=== PATIENT | female | born 1965 | race Caucasian/White ===

== ENCOUNTER 2017-04-14 10:12 | Emergency (ER) | payer SELFPAY ==
[2017-04-14] MEDS ORDERED: NORMAL SALINE 1000 ML 1,000 ML IV ONE ×2 (10:41→13:10)
--- NOTE | 2017-04-14 10:42 | ER Document Report ---
ED Blood Sugar Problem - General Chief Complaint: High Blood Sugar Stated Complaint: SUGAR CONCERN Time Seen by Provider: 04/14/17 10:40 Mode of Arrival: Ambulatory Information source: Patient Notes: Patient states that she had an elevated blood sugar at her primary doctor's office and was told that her A1c was 8.5. They noticed ketones in elevated glucose on her urinalysis and advised her to come here for evaluation for possible DKA. Patient reports generalized fatigue, polyuria and polydipsia. Patient denies any pain, fever, nausea or vomiting. Patient states that she did buy a glucometer online and has been checking her blood sugar over the past few days. Patient has no previous history of diabetes. TRAVEL OUTSIDE OF THE [place] IN LAST 30 DAYS: No - HPI Onset: This afternoon Onset/Duration: Gradual Quality of pain: No pain Pain Level: Denies Associated symptoms: Increased thirst, Frequent urination, Weakness. denies: Confusion, Vomiting Similar symptoms previously: No Recently seen / treated by doctor: Yes - Related Data Allergies/Adverse Reactions: Penicillins Allergy (Verified 04/14/17 10:23) Past Medical History - General Information source: Patient - Social History Smoking Status: Never Smoker Frequency of alcohol use: Occasional Drug Abuse: None Family History: Reviewed & Not Pertinent Patient has suicidal ideation: No Patient has homicidal ideation: No - Medical History Medical History: Other - Tremor Renal/ Medical History: Denies: Hx Peritoneal Dialysis Past Surgical History: Reports: Hx Section Review of Systems - Review of Systems Constitutional: Malaise. denies: Fever, Recent illness EENT: No symptoms reported Cardiovascular: No symptoms reported. denies: Chest pain, Dizziness Respiratory: No symptoms reported. denies: Cough, Short of breath Gastrointestinal: Other - Increased thirst. denies: Abdominal pain, Nausea, Vomiting Genitourinary: Frequency Female Genitourinary: No symptoms reported Musculoskeletal: No symptoms reported. denies: Back pain, Neck pain Skin: No symptoms reported Hematologic/Lymphatic: No symptoms reported Neurological/Psychological: No symptoms reported Physical Exam - Vital signs Vitals: Temp Pulse Resp BP Pulse Ox 98.4 F 80 15 127/77 H 98 04/14/17 10:29 04/14/17 10:29 04/14/17 10:29 04/14/17 10:29 04/14/17 10:29 - General General appearance: Appears well, Alert In distress: None - HEENT Head: Normocephalic Eyes: Normal Conjunctiva: Normal - Respiratory Respiratory status: No respiratory distress Chest status: Nontender Breath sounds: Normal. No: Rales, Rhonchi, Stridor, Wheezing Chest palpation: Normal - Cardiovascular Rhythm: Regular Heart sounds: S1 appreciated, S2 appreciated Murmur: No - Abdominal Inspection: Obese Bowel sounds: Normal Tenderness: Nontender - Back Back: Normal, Nontender - Extremities General upper extremity: Normal inspection, Normal strength General lower extremity: Normal inspection, Normal strength - Neurological Neuro grossly intact: Yes Cognition: Normal Ahmet Coma Scale Eye Opening: Spontaneous Ahmet Coma Scale Verbal: Oriented [place] Coma Scale Motor: Obeys Commands Ahmet Coma Scale Total: 15 - Psychological Associated symptoms: Normal affect, Normal mood - Skin Skin Temperature: Warm Skin Moisture: Dry Skin Color: Flushed Course - Re-evaluation Re-evalutation: 04/14/17 13:36 Patient updated regarding results of diagnostic test results. Discussed plan of care with patient. We will give her additional liter of IV fluid as well as some insulin to help with her elevated blood sugar this time. Consulted with Dr. Bryant regarding patient presentation, reviewed patient's EKG. Recommends outpatient follow-up with a primary doctor for further management of her diabetes. 04/14/17 13:45 land planner consulted with patient and discussed outpatient needs. - Vital Signs Vital signs: Temp Pulse Resp BP Pulse Ox 98.4 F 76 15 143/81 H 99 04/14/17 10:29 04/14/17 14:46 04/14/17 10:29 04/14/17 14:46 04/14/17 14:46 - Laboratory Result Diagrams: 04/14/17 11:50 04/14/17 11:50 Laboratory results interpreted by me: 04/14/17 04/14/17 04/14/17 10:36 10:53 11:50 WBC 13.1 H Hgb 17.1 H Hct 48.6 H Absolute Neutrophils 10.2 H Sodium Chloride Glucose POC Glucose 335 H AST ALT Urine Glucose (UA) >=500 H Urine Ketones 80 H Urine Ascorbic Acid 20 H 04/14/17 04/14/17 11:50 14:38 WBC Hgb Hct Absolute Neutrophils Sodium 133.5 L Chloride 97 L Glucose 332 H POC Glucose 233 H AST 90 H ALT 99 H Urine Glucose (UA) Urine Ketones Urine Ascorbic Acid Labs- Entire Visit 04/14/17 04/14/17 04/14/17 10:36 10:53 11:50 WBC 13.1 H RBC 5.28 Hgb 17.1 H Hct 48.6 H MCV 92 MCH 32.4 MCHC 35.2 RDW 13.3 Plt Count 229 Seg Neutrophils % 77.9 Lymphocytes % 16.4 Monocytes % 4.4 Eosinophils % 0.8 Basophils % 0.5 Absolute Neutrophils 10.2 H Absolute Lymphocytes 2.1 Absolute Monocytes 0.6 Absolute Eosinophils 0.1 Absolute Basophils 0.1 VBG pH VBG pCO2 VBG HCO3 VBG Base Excess Sodium Potassium Chloride Carbon Dioxide Anion Gap BUN Creatinine Est GFR ( Amer) Est GFR (Non-Af Amer) Glucose POC Glucose 335 H Calcium Total Bilirubin Direct Bilirubin Neonat Total Bilirubin Neonat Direct Bilirubin Neonat Indirect Bili AST ALT Alkaline Phosphatase Total Protein Albumin Urine Color YELLOW Urine Appearance SLIGHTLY-CLOUDY Urine pH 5.0 Ur Specific [place] 1.029 Urine Protein NEGATIVE Urine Glucose (UA) >=500 H Urine Ketones 80 H Urine Blood NEGATIVE Urine Nitrite NEGATIVE Urine Bilirubin NEGATIVE Urine Urobilinogen NEGATIVE Ur Leukocyte Esterase NEGATIVE Urine WBC (Auto) 3 Urine RBC (Auto) 2 U Hyaline Cast (Auto) 1 Urine Bacteria (Auto) 1+ Squamous Epi Cells Auto 3 Urine Mucus (Auto) RARE Urine Ascorbic Acid 20 H 04/14/17 04/14/17 11:50 11:50 WBC RBC Hgb Hct MCV MCH MCHC RDW Plt Count Seg Neutrophils % Lymphocytes % Monocytes % Eosinophils % Basophils % Absolute Neutrophils Absolute Lymphocytes Absolute Monocytes Absolute Eosinophils Absolute Basophils VBG pH 7.35 VBG pCO2 45.4 VBG HCO3 24.3 VBG Base Excess -1.7 Sodium 133.5 L Potassium 4.5 Chloride 97 L Carbon Dioxide 25 Anion Gap 12 BUN 12 Creatinine 0.74 Est GFR ( Amer) > 60 Est GFR (Non-Af Amer) > 60 Glucose 332 H POC Glucose Calcium 9.8 Total Bilirubin 1.0 Direct Bilirubin 0.4 Neonat Total Bilirubin Not Reportable Neonat Direct Bilirubin Not Reportable Neonat Indirect Bili Not Reportable AST 90 H ALT 99 H Alkaline Phosphatase 118 Total Protein 7.6 Albumin 4.5 Urine Color Urine Appearance Urine pH Ur Specific [place] Urine Protein Urine Glucose (UA) Urine Ketones Urine Blood Urine Nitrite Urine Bilirubin Urine Urobilinogen Ur Leukocyte Esterase Urine WBC (Auto) Urine RBC (Auto) U Hyaline Cast (Auto) Urine Bacteria (Auto) Squamous Epi Cells Auto Urine Mucus (Auto) Urine Ascorbic Acid 04/14/17 14:13 Labs- Entire Visit 04/14/17 04/14/17 04/14/17 10:36 10:53 11:50 WBC 13.1 H RBC 5.28 Hgb 17.1 H Hct 48.6 H MCV 92 MCH 32.4 MCHC 35.2 RDW 13.3 Plt Count 229 Seg Neutrophils % 77.9 Lymphocytes % 16.4 Monocytes % 4.4 Eosinophils % 0.8 Basophils % 0.5 Absolute Neutrophils 10.2 H Absolute Lymphocytes 2.1 Absolute Monocytes 0.6 Absolute Eosinophils 0.1 Absolute Basophils 0.1 VBG pH VBG pCO2 VBG HCO3 VBG Base Excess Sodium Potassium Chloride Carbon Dioxide Anion Gap BUN Creatinine Est GFR ( Amer) Est GFR (Non-Af Amer) Glucose POC Glucose 335 H Calcium Total Bilirubin Direct Bilirubin Neonat Total Bilirubin Neonat Direct Bilirubin Neonat Indirect Bili AST ALT Alkaline Phosphatase Total Protein Albumin Urine Color YELLOW Urine Appearance SLIGHTLY-CLOUDY Urine pH 5.0 Ur Specific [place] 1.029 Urine Protein NEGATIVE Urine Glucose (UA) >=500 H Urine Ketones 80 H Urine Blood NEGATIVE Urine Nitrite NEGATIVE Urine Bilirubin NEGATIVE Urine Urobilinogen NEGATIVE Ur Leukocyte Esterase NEGATIVE Urine WBC (Auto) 3 Urine RBC (Auto) 2 U Hyaline Cast (Auto) 1 Urine Bacteria (Auto) 1+ Squamous Epi Cells Auto 3 Urine Mucus (Auto) RARE Urine Ascorbic Acid 20 H 04/14/17 04/14/17 11:50 11:50 WBC RBC Hgb Hct MCV MCH MCHC RDW Plt Count Seg Neutrophils % Lymphocytes % Monocytes % Eosinophils % Basophils % Absolute Neutrophils Absolute Lymphocytes Absolute Monocytes Absolute Eosinophils Absolute Basophils VBG pH 7.35 VBG pCO2 45.4 VBG HCO3 24.3 VBG Base Excess -1.7 Sodium 133.5 L Potassium 4.5 Chloride 97 L Carbon Dioxide 25 Anion Gap 12 BUN 12 Creatinine 0.74 Est GFR ( Amer) > 60 Est GFR (Non-Af Amer) > 60 Glucose 332 H POC Glucose Calcium 9.8 Total Bilirubin 1.0 Direct Bilirubin 0.4 Neonat Total Bilirubin Not Reportable Neonat Direct Bilirubin Not Reportable Neonat Indirect Bili Not Reportable AST 90 H ALT 99 H Alkaline Phosphatase 118 Total Protein 7.6 Albumin 4.5 Urine Color Urine Appearance Urine pH Ur Specific [place] Urine Protein Urine Glucose (UA) Urine Ketones Urine Blood Urine Nitrite Urine Bilirubin Urine Urobilinogen Ur Leukocyte Esterase Urine WBC (Auto) Urine RBC (Auto) U Hyaline Cast (Auto) Urine Bacteria (Auto) Squamous Epi Cells Auto Urine Mucus (Auto) Urine Ascorbic Acid Discharge - Discharge Clinical Impression: Diabetes Qualifiers: Diabetes mellitus type: other specified (including ANDRAE) Diabetes mellitus complication status: with hyperglycemia Diabetes mellitus chcf insulin use : without chcf use Qualified Code(s): E13.65 - Other specified diabetes mellitus with hyperglycemia Condition: Stable Disposition: HOME, SELF-CARE Instructions: Diabetes (OM), Glucophage ([facility]) Additional Instructions: Return immediately for any new or worsening symptoms Followup with your primary care provider, call tomorrow to make a followup appointment Eat a diabetic diet Monitor your blood sugar and record your results. Follow-up with your primary care provider for recheck, call today to make a follow-up appointment Prescriptions: Blood-Glucose Meter, Drum-Type [Accu-Chek] 1 kit MC ASDIR PRN #1 kit PRN Reason: Metformin HCl [Glucophage 500 mg Tablet] 500 mg PO BID #60 tablet Forms: Return to Work Referrals: [facility] [Provider Group] - Follow up tomorrow
[2017-04-14 11:29] LABS: APPEARANCE,URINE SLIGHTLY-CLOUDY; BILIRUBIN,URINE NEGATIVE (NEGATIVE); COLOR,URINE YELLOW; GLUCOSE, URINE >=500 mg/dL (NEGATIVE); KETONES,URINE 80 mg/dL (NEGATIVE); LEUKOCYTE ESTERASE,URINE NEGATIVE (NEGATIVE); NITRITE,URINE NEGATIVE (NEGATIVE); PROTEIN,URINE NEGATIVE (NEGATIVE); URINE SPECIFIC GRAVITY 1.029; UROBILINOGEN,URINE NEGATIVE mg/dL (<2.0)
[2017-04-14 12:26] LABS: ABSOLUTE BASOPHILS # (AUTO) 0.1 10^3/uL (0.0-0.2); ABSOLUTE EOSINOPHILS # (AUTO) 0.1 10^3/uL (0.0-0.6); ABSOLUTE LYMPHOCYTES (AUTO) 2.1 10^3/uL (0.5-4.7); ABSOLUTE MONOCYTES (AUTO) 0.6 10^3/uL (0.1-1.4); ABSOLUTE NEUT (AUTO) 10.2 10^3/uL (1.7-8.2); BASOPHILS % (AUTO) 0.5 % (0-2); EOSINOPHILS % (AUTO) 0.8 % (0-6); HEMATOCRIT 48.6 % (36.0-47.0); HEMOGLOBIN 17.1 g/dL (12.0-15.5); LYMPHOCYTES % (AUTO) 16.4 % (13-45); MEAN CORPUSCULAR HEMOGLOBIN 32.4 pg (27.0-33.4); MEAN CORPUSCULAR HGB CONC 35.2 g/dL (32.0-36.0); MEAN CORPUSCULAR VOLUME 92 fl (80-97); MONOCYTES % (AUTO) 4.4 % (3-13); PLATELET COUNT 229 10^3/uL (150-450); RED BLOOD COUNT 5.28 10^6/uL (3.72-5.28); RED CELL DISTRIBUTION WIDTH 13.3 % (11.5-14.0); SEGMENTED NEUTROPHILS % (AUTO) 77.9 % (42-78); TOTAL CELLS COUNTED % (AUTO) 100 %; WHITE BLOOD COUNT 13.1 10^3/uL (4.0-10.5)
[2017-04-14 12:36] LABS: VENOUS BLOOD BASE EXCESS -1.7 mmol/L; VENOUS BLOOD HCO3 24.3 mmol/L (20-32); VENOUS BLOOD PCO2 45.4 mmHg (35-63); VENOUS BLOOD PH 7.35 (7.30-7.42)
[2017-04-14 12:40] LABS: ALANINE AMINOTRANSFERASE 99 U/L (9-52); ALBUMIN 4.5 g/dL (3.5-5.0); ALKALINE PHOSPHATASE 118 U/L (38-126); ANION GAP 12 (5-19); ASPARTATE AMINO TRANSFERASE 90 U/L (14-36); BILIRUBIN,DIRECT 0.4 mg/dL (0.0-0.4); BLOOD UREA NITROGEN 12 mg/dL (7-20); CALCIUM 9.8 mg/dL (8.4-10.2); CARBON DIOXIDE 25 mmol/L (22-30); CHLORIDE 97 mmol/L (98-107); GLUCOSE 332 mg/dL (75-110); POTASSIUM 4.5 mmol/L (3.6-5.0); SODIUM 133.5 mmol/L (137-145); TOTAL PROTEIN 7.6 g/dL (6.3-8.2)
[2017-04-14] MEDS ORDERED: INSULIN REG, HUMAN 100 UNIT/ML 3 ML VIAL (PYX) SUBCUT ONE (13:11)
[2017-04-14 14:53] VITALS: BP 143/81
--- NOTE | 2017-04-14 15:20 | EKG REPORT ---
SEVERITY:- BORDERLINE ECG - SINUS RHYTHM BORDERLINE T ABNORMALITIES, ANTERIOR LEADS : Confirmed by: Max Johnson 14-Apr-2017 15:20:05
== END 2017-04-14 14:46 | disposition home or self-care (01) ==
LOC: ER 10:12
DX: E13.65 Other specified diabetes mellitus with hyperglycemia (principal); R53.83 Other fatigue; R35.8 Other polyuria; R63.1 Polydipsia
CPT/HCPCS: 93005; 99285; 96360; 96361; 36415; 82962; 85025; 80053; 81001; 82803; 93010; J1815; J7030

== ENCOUNTER 2017-05-11 15:31 | Emergency (ER) | payer SELFPAY ==
[2017-05-11] MEDS ORDERED: ONDANSETRON 4 MG TAB.RAPDIS PO ONE (16:14)
--- NOTE | 2017-05-11 16:15 | ER Document Report ---
ED Medical Screen (RME) - General Chief Complaint: Constipation Stated Complaint: BOWEL PROBLEMS Time Seen by Provider: 05/11/17 16:14 Mode of Arrival: Ambulatory Information source: Patient Notes: 51 yo female with bilious vomiting with crampy abdominal pain since last night. Worried about bowel obstruction from taking 2000mg cinnamon to lower blood sugar. No bm fromn 3-3 to 3-8-, until a small bm on after taking 200mg colace. recent diabetes dx 04-14-17, started on metformin 500mg bid at that time with diet and exercise. No relief with enema, metamucil or colace, no anal pain. C sections x 2. No fever. TRAVEL OUTSIDE OF THE [place] IN LAST 30 DAYS: No - Related Data Allergies/Adverse Reactions: Penicillins Allergy (Verified 05/11/17 15:35) Past Medical History Renal/ Medical History: Denies: Hx Peritoneal Dialysis Past Surgical History: Reports: Hx Section Physical Exam - Vital signs Vitals: Temp Pulse Resp BP Pulse Ox 98.4 F 86 18 124/77 99 05/11/17 15:56 05/11/17 15:56 05/11/17 15:56 05/11/17 15:56 05/11/17 15:56 Course - Vital Signs Vital signs: Temp Pulse Resp BP Pulse Ox 98.4 F 86 18 124/77 99 05/11/17 15:56 05/11/17 15:56 05/11/17 15:56 05/11/17 15:56 05/11/17 15:56
[2017-05-11] MEDS ORDERED: NORMAL SALINE 1000 ML 2,000 ML IV ONE (16:25)
[2017-05-11] MEDS ORDERED: HYDROMORPHONE HCL INJ/PF 2 MG/ML AMPULE IV ONE (16:28)
--- NOTE | 2017-05-11 16:58 | RADIOLOGY REPORT (SQ) ---
EXAM DESCRIPTION: ACUTE ABDOMEN SERIES COMPLETED DATE/TIME: 05/11/2017 4:47 pm REASON FOR STUDY: abd pain, constipation ? obstruction COMPARISON: None. NUMBER OF VIEWS: Three views. TECHNIQUE: Frontal chest, supine abdomen and upright/decubitus abdomen radiographic images acquired. LIMITATIONS: Limiting body habitus. FINDINGS: CHEST: Lungs clear of infiltrates. FREE AIR: None. No abnormal gas collections. BOWEL GAS PATTERN: No dilated loops, nonobstructive pattern. Fair amount of stool throughout the col on likely reflecting a degree of constipation. CALCIFICATIONS: Probable phleboliths in the left hemipelvis. HARDWARE: Suspect IUD within the pelvis, limited further assessment. SOFT TISSUES: No gross mass or suggestion of organomegaly. BONES: No acute fracture. No worrisome bone lesions. OTHER: No other significant finding. IMPRESSION: Findings suggesting constipation. No acute disease evident. TECHNICAL DOCUMENTATION: JOB ID: [id number]- All Rights Reserved Reading location - IP/workstation name: [email or web address]
[2017-05-11 17:33] LABS: APPEARANCE,URINE SLIGHTLY-CLOUDY; BILIRUBIN,URINE SMALL (NEGATIVE); COLOR,URINE AMBER; GLUCOSE, URINE NEGATIVE (NEGATIVE); KETONES,URINE 20 mg/dL (NEGATIVE); LEUKOCYTE ESTERASE,URINE NEGATIVE (NEGATIVE); NITRITE,URINE NEGATIVE (NEGATIVE); PROTEIN,URINE 30 mg/dL (NEGATIVE); URINE SPECIFIC GRAVITY 1.032
[2017-05-11 17:41] LABS: ABSOLUTE BASOPHILS # (AUTO) 0.1 10^3/uL (0.0-0.2); ABSOLUTE EOSINOPHILS # (AUTO) 0.1 10^3/uL (0.0-0.6); ABSOLUTE LYMPHOCYTES (AUTO) 1.9 10^3/uL (0.5-4.7); ABSOLUTE MONOCYTES (AUTO) 0.9 10^3/uL (0.1-1.4); ABSOLUTE NEUT (AUTO) 13.4 10^3/uL (1.7-8.2); BASOPHILS % (AUTO) 0.3 % (0-2); EOSINOPHILS % (AUTO) 0.4 % (0-6); HEMATOCRIT 45.5 % (36.0-47.0); HEMOGLOBIN 16.3 g/dL (12.0-15.5); LYMPHOCYTES % (AUTO) 11.6 % (13-45); MEAN CORPUSCULAR HGB CONC 35.8 g/dL (32.0-36.0); MEAN CORPUSCULAR VOLUME 89 fl (80-97); MONOCYTES % (AUTO) 5.8 % (3-13); PLATELET COUNT 290 10^3/uL (150-450); RED BLOOD COUNT 5.09 10^6/uL (3.72-5.28); RED CELL DISTRIBUTION WIDTH 13.9 % (11.5-14.0); SEGMENTED NEUTROPHILS % (AUTO) 81.9 % (42-78); TOTAL CELLS COUNTED % (AUTO) 100 %; WHITE BLOOD COUNT 16.3 10^3/uL (4.0-10.5)
[2017-05-11 18:04] LABS: ALANINE AMINOTRANSFERASE 62 U/L (9-52); ALBUMIN 4.7 g/dL (3.5-5.0); ALKALINE PHOSPHATASE 87 U/L (38-126); ANION GAP 16 (5-19); ASPARTATE AMINO TRANSFERASE 42 U/L (14-36); BILIRUBIN,DIRECT 0.5 mg/dL (0.0-0.4); BILIRUBIN,TOTAL 1.4 mg/dL (0.2-1.3); BLOOD UREA NITROGEN 15 mg/dL (7-20); CALCIUM 10.2 mg/dL (8.4-10.2); CARBON DIOXIDE 27 mmol/L (22-30); CHLORIDE 101 mmol/L (98-107); GLUCOSE 135 mg/dL (75-110); LIPASE 61.7 U/L (23-300); POTASSIUM 3.8 mmol/L (3.6-5.0); SODIUM 143.8 mmol/L (137-145); TOTAL PROTEIN 7.7 g/dL (6.3-8.2)
[2017-05-11] MEDS ORDERED: ONDANSETRON ODT 4 MG TAB (6 TAB/ER DISP) PO PRN (19:25)
--- NOTE | 2017-05-11 19:26 | ER Document Report ---
ED General - General Chief Complaint: Constipation Stated Complaint: BOWEL PROBLEMS Time Seen by Provider: 05/11/17 16:14 Mode of Arrival: Ambulatory Notes: Patient is a 51-year-old female without past medical history, 2 prior C- sections but no prior additional abdominal surgeries who presents with nausea, vomiting, intermittent generalized abdominal cramping. Patient reports that she has not had a bowel movement in 8 days. She states that symptoms started after she took a cinnamon supplement that she purchased online. She states that she subsequently researched the supplement and found out that it often causes severe constipation. She states that she did try to treat her symptoms with a single Colace tablet but did not have any improvement and continues to be without any bowel movements. She does continue to pass flatus. She has been intermittently able to tolerate oral intake. Nothing seems to improve or worsen her symptoms. She denies any history of similar symptoms in the past. She has not seen a primary doctor regarding today's concerns. She notes that her intermittent, generalized abdominal cramping is mild in nature and is not currently present at time of my assessment. TRAVEL OUTSIDE OF THE [place] IN LAST 30 DAYS: No - Related Data Allergies/Adverse Reactions: Penicillins Allergy (Verified 05/11/17 15:35) Past Medical History - General Information source: Patient - Social History Smoking Status: Never Smoker Chew tobacco use (# tins/day): No Frequency of alcohol use: None Drug Abuse: None Lives with: Spouse/Significant other Family History: Reviewed & Not Pertinent Patient has suicidal ideation: No Patient has homicidal ideation: No - Past Medical History Cardiac Medical History: Reports: Hx Hypertension Endocrine Medical History: Reports: Hx Diabetes Mellitus Type 2 Renal/ Medical History: Denies: Hx Peritoneal Dialysis Psychiatric Medical History: Reports: Hx Depression Past Surgical History: Reports: Hx Section - x2 Review of Systems - Review of Systems Notes: Constitutional: Negative for fever. HENT: Negative for sore throat. Eyes: Negative for visual changes. Cardiovascular: Negative for chest pain. Respiratory: Negative for shortness of breath. Gastrointestinal: Positive for abdominal cramping, vomiting and constipation Genitourinary: Negative for dysuria. Musculoskeletal: Negative for back pain. Skin: Negative for rash. Neurological: Negative for headaches, weakness or numbness. 10 point ROS negative except as marked above and in HPI. Physical Exam - Vital signs Vitals: Temp Pulse Resp BP Pulse Ox 98.4 F 86 18 124/77 99 05/11/17 15:56 05/11/17 15:56 05/11/17 15:56 05/11/17 15:56 05/11/17 15:56 Interpretation: Normal Notes: PHYSICAL EXAMINATION: GENERAL: Well-appearing, well-nourished and in no acute distress. HEAD: Atraumatic, normocephalic. EYES: Pupils equal round and reactive to light, extraocular movements intact, sclera anicteric, conjunctiva are normal. ENT: nares patent, oropharynx clear without exudates. Moist mucous membranes. NECK: Normal range of motion, supple without lymphadenopathy LUNGS: Breath sounds clear to auscultation bilaterally and equal. No wheezes rales or rhonchi. HEART: Regular rate and rhythm without murmurs ABDOMEN: Soft, nontender, normoactive bowel sounds. No guarding, no rebound. No masses appreciated. EXTREMITIES: Normal range of motion, no pitting or edema. No cyanosis. NEUROLOGICAL: No focal neurological deficits. Moves all extremities spontaneously and on command. PSYCH: Normal mood, normal affect. SKIN: Warm, Dry, normal turgor, no rashes or lesions noted. Course - Re-evaluation Re-evalutation: 05/11/17 19:21 Patient presents with nausea, vomiting and absence of a bowel movement for the past 8 days. Patient has no focal abdominal tenderness on examination at the time of my exam denies any abdominal pain. She has no history of a bowel obstruction and although her clinical history could be consistent with this diagnosis it is unusual the patient has continued to pass flatus and has had several very small bowel movements. Moreover, the patient has been able to tolerate oral intake until today. However, here in the emergency department after receiving IV ondansetron the patient has been able to tolerate oral intake without any difficulty. Labs are notable for a mild leukocytosis, patient does note a baseline history of the same and review of prior records does show that she had a leukocytosis on her prior visit to the emergency department as well. The remainder of her labs show very mild transaminitis which is not clinically relevant to today's presentation. She has no focal right upper quadrant tenderness to suggest biliary pathology denies clinical history of be consistent with such a diagnosis. 3 view of the abdomen demonstrates marked constipation but no evidence of obstruction or free air. Patient is extremely cheerful on examination, laughing and joking with me, very pleased with the plan to go home and do a MiraLAX cleanout prep. We did discuss the possibility of this failing and her having additional vomiting at home. She is in immediate agreement to return to the emergency department should this occur for CT scan of her abdomen and pelvis to further exclude a bowel obstruction. At this time will discharge with return precautions and follow-up recommendations. Verbal discharge instructions given a the bedside and opportunity for questions given. Medication warnings reviewed. Patient is in agreement with this plan and has verbalized understanding of return precautions and the need for primary care follow-up in the next 24-72 hours. - Vital Signs Vital signs: Temp Pulse Resp BP Pulse Ox 98.4 F 82 16 103/67 98 05/11/17 15:56 05/11/17 20:20 05/11/17 20:20 05/11/17 20:20 05/11/17 20:20 - Laboratory Result Diagrams: 05/11/17 17:15 05/11/17 17:15 Laboratory results interpreted by me: 05/11/17 05/11/17 05/11/17 17:05 17:15 17:15 WBC 16.3 H Hgb 16.3 H Seg Neutrophils % 81.9 H Lymphocytes % 11.6 L Absolute Neutrophils 13.4 H Glucose 135 H Total Bilirubin 1.4 H Direct Bilirubin 0.5 H AST 42 H ALT 62 H Urine Protein 30 H Urine Ketones 20 H Urine Bilirubin SMALL H Urine Urobilinogen 2.0 H Urine Ascorbic Acid 20 H - Diagnostic Test Radiology reviewed: Image reviewed, Reports reviewed Radiology results interpreted by me: 05/11/17 19:24 2 view abdomen: Marked constipation, no evidence of obstruction Discharge - Discharge Clinical Impression: Abdominal cramping Nausea and vomiting Qualifiers: Vomiting type: unspecified Vomiting Intractability: non-intractable Qualified Code(s): R11.2 - Nausea with vomiting, unspecified Constipation Qualifiers: Constipation type: unspecified constipation type Qualified Code(s): K59.00 - Constipation, unspecified Condition: Good Disposition: HOME, SELF-CARE Additional Instructions: For your constipation: You should take 8 caps of MiraLAX and placed in 1 liter of Gatorade. Drink one half of the solution and wait 4 hours. If you do not have a bowel movement take the remaining half of the solution. Please return to the emergency department immediately if you have additional vomiting and unable to tolerate oral fluids, you have worsening or return of your abdominal pain, develop a fever greater than 100.4F, or have any other symptoms that are worrisome to you. Referrals: RANDI SAMPSON MD [Primary Care Provider] - Follow up as needed
[2017-05-11 20:23] VITALS: BP 103/67
== END 2017-05-11 20:20 | disposition home or self-care (01) ==
LOC: ER 15:31
DX: K59.00 Constipation, unspecified (principal); R10.84 Generalized abdominal pain; R11.2 Nausea with vomiting, unspecified; I10 Essential (primary) hypertension; E11.9 Type 2 diabetes mellitus without complications; Z88.0 Allergy status to penicillin
CPT/HCPCS: 99284; 36415; 83690; 84703; 85025; 80053; 81001; 74022; S0119; J7030; 96360